=== PATIENT | male | born 1945 | race Caucasian/White ===

== ENCOUNTER 2016-08-27 10:41 | Emergency (ER) | payer OTHER ==
[~2016-08-27] VITALS: Ht 172.7 cm; Wt 104.3 kg
[~2016-08-27 10:41] MED LIST: FLEXERIL10 MG PO; MEDROL DOSEPAK1 PAC PO; NAPROXEN500 M1 PO
[2016-08-27] MEDS ORDERED: ATORVASTATIN CA10 M1 PO (11:08)
[2016-08-27] MEDS ORDERED: AMLODIPINE BESYL5 M1 PO (11:09)
[2016-08-27] MEDS ORDERED: BICALUTAMIDE50 M1 PO (11:09)
[2016-08-27] MEDS ORDERED: LISINOPRIL20 M1 PO (11:09)
--- NOTE | 2016-08-27 11:16 | ED UPPER/LOWER EXTREMITY COMPL ---
History of Present Illness General Chief Complaint: Lower Extremity Problems Stated Complaint: LT LEG PAIN Source: patient, old records Exam Limitations: expressive aphasia Vital Signs & Intake/Output Vital Signs & Intake/Output Vital Signs Date Time Temp Pulse Resp B/P Pulse O2 O2 Flow FiO2 Ox Delivery Rate 08/27 1701 72 20 122/78 98 Room Air 08/27 1528 75 20 129/80 95 Room Air 08/27 1351 98.3 72 20 121/70 94 Room Air Room Air 08/27 1101 97.6 86 18 107/72 96 Room Air Allergies Coded Allergies: NO KNOWN ALLERGIES (01/30/13) Reconcile Medications Amlodipine Besylate 5 MG TABLET 1 TAB PO DAILY HEART (Reported) Atorvastatin Calcium 10 MG TABLET 1 TAB PO DAILY CHOLESTEROL (Reported) Bicalutamide 50 MG TABLET 1 TAB PO DAILY PROSTATE (Reported) Lisinopril 20 MG TABLET 1 TAB PO DAILY HEART (Reported) Triage Note: PT CAME TO TRIAGE WITH COMPLAINTS OF 2 WEEKS OF PAIN IN BILATERAL LEGS, WHEN THIS NURSE SPEAKING WITH PT , PT NOTED TO BE HAVING DIFFICULTY FORMING WORDS, SPEECH IS CLEAR BUT SOME WORDS PT NOTED TO STRUGGLE TO FORM. WHEN QUESTIONED ABOUT IF HE NOTICED THIS , "STATES THAT ITS BEEN GOING ON FOR ABOUT 2.5 WEEKS. Triage Nurses Notes Reviewed? yes HPI: Patient presents for evaluation of bilateral leg problem. The patient apparently has a considerable expressive aphasia and history is extremely limited. There are times where he simply cannot answer a question because of word searching. Apparently he has noted an indentation of the left huizar that began about 3-4 weeks ago. He seems to indicate that there is leg discomfort but cannot characterize it. This began about 2 weeks ago and he feels that only during ambulation. He states he sees a physician at the hospital for leg problems but cannot say who the physician it is. He denies swelling rashes or redness but states he is having trouble ambulating for an unclear reason (he is unable to state if it is a weakness or discoordination). He does admit to having trouble finding words over the past 2 weeks. He has not sought care for these particular issues until this time. Past medical history of cancer but the patient cannot state what kind. Past History Travel History Traveled to [place] past 21 day No Medical History Any Pertinent Medical History? see below for history Neurological: NONE EENT: NONE Cardiovascular: NONE Respiratory: NONE Gastrointestinal: NONE Hepatic: NONE Renal: NONE Musculoskeletal: gout Psychiatric: NONE Endocrine: NONE Blood Disorders: NONE Cancer(s): prostate cancer Surgical History Surgical History: unobtainable Psychosocial History What is your primary language Nepali Tobacco Use: Never used ETOH Use: denies use Illicit Drug Use: denies illicit drug use Family History Hx Contributory? No Review of Systems Review of Systems Constitutional: Reports: no symptoms. EENTM: Reports: no symptoms. Respiratory: Reports: no symptoms. Cardiovascular: Reports: no symptoms. Gastrointestinal/Abdominal: Reports: no symptoms. Genitourinary: Reports: no symptoms. Musculoskeletal: Reports: see HPI. Skin: Reports: no symptoms. Neurological/Psychological: Reports: no symptoms. Hematologic/Endocrine: Reports: no symptoms. Immunological: Reports: no symptoms. All Other Systems: Reviewed and Negative Physical Exam Physical Exam General Appearance: see below Comments: Gen.: Well-nourished, well-developed, no acute respiratory distress. Head: Normocephalic, atraumatic. Eyes: Normal inspection bilaterally, PERRLA, EOMI, no apparent visual field deficits Ears: Normal inspection bilaterally Nose: Normal inspection, nasal cannula in place Throat/mouth : Moist mucosa Neck: Supple, full range of motion, no goiter, no chronic bruits, equal and normal carotid pulses Heart: Regular rate and rhythm Lungs: Quiet respirations Back: Normal range of motion Extremities: Right lower extremity examination normal, left lower extremity examination with mild pretibial pitting edema. Neurologic: Cranial nerves 2 through 12 intact, speech is clear, no dysmetria of his upper or lower extremities, moderate expressive aphasia. Frequent word searching and inappropriate word substitutions. Skin: warm and dry Psychiatric: Calm, cooperative, no apparent delusions or hallucinations Progress Differential Diagnosis: CVA, discoordination, left lower extremity DVT Plan of Care: Orders Procedure Date/time Status PARTIAL THROMBOPLASTIN TIME 08/27 1141 Complete PROTHROMBIN TIME 08/27 1141 Complete COMPREHENSIVE METABOLIC PANEL 08/27 1141 Complete CBC WITHOUT DIFFERENTIAL 08/27 1141 Complete EKG 08/27 1141 Active Laboratory Tests 08/27/16 1145: Anion Gap 15, Estimated GFR 55 L, BUN/Creatinine Ratio 31.5 H, Glucose 119 H, Calcium 9.9, Total Bilirubin 1.1, AST 23, ALT 28, Alkaline Phosphatase 153 H, Total Protein 7.6, Albumin 4.7, Globulin 2.9, Albumin/Globulin Ratio 1.6, PT 12.5, INR 1.19 H, APTT 27, CBC w Diff NO MAN DIFF REQ, RBC 5.23, MCV 86.3, MCH 29.0, RDW 15.0 H, MPV 7.4, Gran % 59.2, Lymphocytes % 29.4, Monocytes % 10.1 H , Eosinophils % 0.9, Basophils % 0.4, Absolute Granulocytes 5.4, Absolute Lymphocytes 2.7, Absolute Monocytes 0.9 H, Absolute Eosinophils 0.1, Absolute Basophils 0, PUBS MCHC 33.5 Diagnostic Imaging: Discussed w/RAD: MRI, Ultrasound. Radiology Impression: PATIENT: TRISHA COOPER PRESENT AGE: 71 PATIENT ACCOUNT NO: [id number] : 47 LOCATION: [facility] ORDERING PHYSICIAN: FABRICIO ZARAGOZA MD SERVICE DATE: 08/27/16-1141 EXAM TYPE: US - US-UNILATERAL VENOUS DOPPLER EXAMINATION: US TRIPLEX LOWER EXTREMITY, LEFT CLINICAL INFORMATION: Left leg swelling. COMPARISON: None. TECHNIQUE: Color-flow triplex imaging with spectral analysis and compression Doppler were performed on the left lower extremity. FINDINGS: The left common femoral vein is compressible and exhibits a normal phasic waveform; this suggests that the iliac veins are widely patent above. Within the proximal thigh, the visualized profunda femoris vein is patent and the examined greater saphenous vein and saphenofemoral junction are normal. Superficial femoral vein is patent in the proximal, mid and distal thigh. Popliteal vein appears normal to the level of the trifurcation, and the visualized calf veins are patent. No evidence of Mcleod's cyst. IMPRESSION: No evidence of deep vein thrombosis in the left lower extremity. DICTATED BY: PAOLO RYDER MD DATE/TIME DICTATED:08/27/161224 MASTER STEAM YACHT:MARIBELL DATE/TIME TRANSCRIBED:08/27/161224 CONFIDENTIAL, DO NOT COPY WITHOUT APPROPRIATE AUTHORIZATION. <Electronically signed in Other Vendor System> SIGNED BY: PAOLO RYDER MD 08/27/16 1230, PATIENT: TRISHA COOPER PRESENT AGE: 71 PATIENT ACCOUNT NO: [id number] : 47 LOCATION: ER ORDERING PHYSICIAN: FABRICIO ZARAGOZA MD SERVICE DATE: 08/27/16 EXAM TYPE: MRI - MRI-HEAD W & W/O RMOAN; MRI-LUMBAR SPINE W & W/O ROMAN EXAMINATION: MRI BRAIN WITH AND WITHOUT IV CONTRAST MRI LUMBAR SPINE WITH AND WITHOUT IV CONTRAST CLINICAL INFORMATION: History of prostate cancer with gait abnormality. COMPARISON: Lumbar spine MRI 11/04/2015. TECHNIQUE : Multiplanar multisequence MR imaging of the brain and lumbar spine are obtained before and following the administration of 20 mL of OptiMARK intravenous contrast without complication. FINDINGS: BRAIN: There is a large dural based enhancing mass within the left parasylvian region measuring up to 6 cm CC by 6 cm AP by 4 cm TV that encases multiple left sylvian MCA branches and that likely infiltrates the left parasylvian brain parenchyma with significant edema within the left parietotemporal white matter and to lesser extent the left frontal white matter. There is linear dural enhancement at and above the level of the mass that is likely reactive or vascular. Background T2 signal changes throughout the supratentorial white matter most likely reflect chronic microangiopathy. There is no hydrocephalus. No extra-axial surface collection. The central arterial flow voids are maintained. There are no acute infarcts on diffusion-weighted imaging. There is susceptibility artifact within the mass that may reflect blood products and/or mineralization. Cerebellar tonsillar position is normal. There is extensive marrow replacement throughout the bony calvarium and partially imaged cervical spine in keeping with osseous metastatic disease. No significant soft tissue findings. LUMBAR SPINE: Progressive extensive heterogeneously enhancing marrow placement throughout the anterior and posterior elements of the lumbar spine and imaged thoracic spine, sacrum, and bony pelvis in keeping with known osseous metastatic disease in these areas. Vertebral body heights are maintained. Moderate disc volume loss at all lumbar levels. Vertebral body heights are maintained with no acute fractures identified. Ventral epidural venous enhancement throughout the lumbar spine most likely reflects engorged epidural venous plexus with no definite enhancing soft tissue tumor identified. There is linear enhancement of the left L5 nerve root throughout its course, likely secondary to mass effect. No nodular enhancement along the cauda equina nerve roots. The conus terminates at the L1 level. At L1- L2 there is a slight diffuse annular disc bulge with a superimposed left lateral disc osteophyte protrusion and there is mild bilateral facet arthropathy with no central canal stenosis and no foraminal stenosis. Findings unchanged. At L2-L3 there is a diffuse annular disc bulge and mild bilateral facet arthropathy with no significant central canal stenosis and mild foraminal narrowing bilaterally without exiting nerve root compression. Findings unchanged. At L3-L4 there is a diffuse annular disc bulge that is eccentric to the right side and there is mild bilateral hypertrophic facet arthropathy. Mild central canal stenosis. Mild left and moderate right-sided foraminal stenosis with mass effect on the exiting right L3 nerve root. Findings unchanged. At L4-L5 there is a central disc protrusion with a new superiorly migrating extruded component that results in mass effect on the traversing left greater than right L5 nerve roots within the subarticular zones. There is mild to moderate bilateral facet arthropathy. Mild central canal stenosis. A left lateral disc protrusion results in stable mass effect on the extraforaminal left L4 nerve root. Moderate to severe left and moderate right foraminal stenosis unchanged. At L5-S1 there is a new inferiorly migrating posterior left paracentral disc extrusion that results in compression of the traversing left S1 nerve root within the left subarticular zone and there is a posterior right paracentral disc protrusion that results in compression of the traversing right S1 nerve root within the right subarticular zone. There is mild to moderate bilateral hypertrophic facet arthropathy. The central canal remains patent. Moderate to severe left foraminal stenosis has progressed with mass effect on the exiting left L5 nerve root. IMPRESSION: 1. There is a 6 cm dural based favored intra-/extra-axial mass within the left parasylvian region that encases multiple left sylvian MCA branches and that likely infiltrates the adjacent left parasylvian brain parenchyma including Wernicke's and Broca's area with significant edema within the adjacent left cerebral white matter. Mass effect includes partial effacement of the left lateral ventricle and up to 1.1 cm rightward midline shift. Susceptibility artifact within the mass that may reflect blood products and/or mineralization. In light of the clinical history, a dural based metastatic focus is favored though a meningioma with brain parenchymal invasion could have a similar appearance. 2. There is extensive marrow replacement throughout the bony calvarium and partially imaged cervical spine in keeping with osseous metastatic disease. 3. Significantly progressive extensive marrow placement throughout the anterior and posterior elements of the lumbar spine and imaged thoracic spine, sacrum, and bony pelvis in keeping with progressive osseous metastatic disease in these areas. Accounting for epidural venous engorgement, no definite enhancing epidural tumor is appreciated. 4. At L5-S1 there is a new inferiorly migrating posterior left paracentral disc extrusion and there is a new posterior right paracentral disc protrusion which results in compression of the traversing S1 nerve roots within the subarticular zones bilaterally. Progressive severe left foraminal stenosis at L5-S1 with mass effect on the exiting left L5 nerve root. 5. At L4-L5 there is a central disc protrusion with a new superiorly migrating extruded component that results in similar mass effect on the traversing L5 nerve roots within the subarticular zones bilaterally. A left lateral disc protrusion results in stable mass effect on the extraforaminal left L4 nerve root. 6. There is linear enhancement along the left L5 nerve root within the thecal sac, presumably secondary to degenerative compression with no nodular enhancement to suggest intrathecal metastatic disease. Findings discussed with Dr. Fabricio Zaragoza at 3:14 PM on 08/27. DICTATED BY: FABRICOI CASTELLANOS MD DATE/TIME DICTATED:08/27/161499 MASTER STEAM YACHT:MARIBELL DATE/TIME TRANSCRIBED:08/27/161499 CONFIDENTIAL, DO NOT COPY WITHOUT APPROPRIATE AUTHORIZATION. <Electronically signed in Other Vendor System> SIGNED BY: FABRICIO CASTELLANOS MD 08/27/16 1541 Comments: 08/27/2016 3:32:04 PM I have updated Trisha on his preliminary MRI test results ( brain mass seen with associated edema). I have paged neurosurgery and the hospitalist. 15:40 d/w dr king. pt will need surgery to remove the brain mass. suggests admit to medicine with heme onc and neuro. patient's case discussed with Dr. bui (neurosurgery). Patient accepted in ED to ED transfer. Departure Departure Disposition: [facility] (ACUTE) Condition: Stable Clinical Impression Primary Impression: Renal insufficiency Secondary Impressions: Aphasia with neuro-oncology diagnosis, Brain metastasis Referrals: NICHELLE CERON MD (PCP/Family) Departure Forms: Customer Survey General Discharge Information Critical Care Note Critical Care Note Critical Care Time: 30-74 min Primary Impression: Renal insufficiency Secondary Impressions: Aphasia with neuro-oncology diagnosis, Brain metastasis Referrals: NICHELLE CERON MD (PCP/Family) Departure Forms: Customer Survey General Discharge Information Critical Care Note Critical Care Note Critical Care Time: 30-74 min
[2016-08-27 12:00] LABS: ABSOLUTE BASOPHIL COUNT 0 /CUMM (0.0-0.2); ABSOLUTE EOSINOPHIL COUNT 0.1 /CUMM (0.0-0.7); ABSOLUTE GRANULOCYTE CT 5.4 /CUMM (1.4-6.5); ABSOLUTE LYMPH COUNT 2.7 /CUMM (1.2-3.4); ABSOLUTE MONOCYTE COUNT 0.9 /CUMM (0.10-0.60); BASOPHIL % 0.4 % (0.0-2.0); EOSINOPHIL % 0.9 % (0-5); GRANULOCYTE % 59.2 % (42.2-75.2); HEMATOCRIT 45.2 % (42-52); MEAN CORPUSCULAR HGB CONC 33.5 G/DL (33.0-37.0); MEAN CORPUSCULAR VOLUME 86.3 FL (80.0-94.0); MEAN PLATELET VOLUME 7.4 FL (7.4-10.4); PLATELET COUNT 284 /CUMM (130-400); RED BLOOD CELL CT 5.23 /CUMM (4.70-6.10); WHITE BLOOD CELL COUNT 9.1 /CUMM (4.8-10.8)
[2016-08-27 12:10] LABS: PT 12.5 SEC (9.4-12.5); PTT 27 SEC (25-37)
--- NOTE | 2016-08-27 12:30 | ULTRASOUND REPORT ---
EXAMINATION: US TRIPLEX LOWER EXTREMITY, LEFT CLINICAL INFORMATION: Left leg swelling. COMPARISON: None. TECHNIQUE: Color-flow triplex imaging with spectral analysis and compression Doppler were performed on the left lower extremity. FINDINGS: The left common femoral vein is compressible and exhibits a normal phasic waveform; this suggests that the iliac veins are widely patent above. Within the proximal thigh, the visualized profunda femoris vein is patent and the examined greater saphenous vein and saphenofemoral junction are normal. Superficial femoral vein is patent in the proximal, mid and distal thigh. Popliteal vein appears normal to the level of the trifurcation, and the visualized calf veins are patent. No evidence of Mcleod's cyst. IMPRESSION: No evidence of deep vein thrombosis in the left lower extremity.
--- NOTE | 2016-08-27 15:41 | MRI REPORT ---
EXAMINATION: MRI BRAIN WITH AND WITHOUT IV CONTRAST MRI LUMBAR SPINE WITH AND WITHOUT IV CONTRAST CLINICAL INFORMATION: History of prostate cancer with gait abnormality. COMPARISON: Lumbar spine MRI 11/04/2015. TECHNIQUE: Multiplanar multisequence MR imaging of the brain and lumbar spine are obtained before and following the administration of 20 mL of OptiMARK intravenous contrast without complication. FINDINGS: BRAIN: There is a large dural based enhancing mass within the left parasylvian region measuring up to 6 cm CC by 6 cm AP by 4 cm TV that encases multiple left sylvian MCA branches and that likely infiltrates the left parasylvian brain parenchyma with significant edema within the left parietotemporal white matter and to lesser extent the left frontal white matter. There is linear dural enhancement at and above the level of the mass that is likely reactive or vascular. Background T2 signal changes throughout the supratentorial white matter most likely reflect chronic microangiopathy. There is no hydrocephalus. No extra-axial surface collection. The central arterial flow voids are maintained. There are no acute infarcts on diffusion-weighted imaging. There is susceptibility artifact within the mass that may reflect blood products and/or mineralization. Cerebellar tonsillar position is normal. There is extensive marrow replacement throughout the bony calvarium and partially imaged cervical spine in keeping with osseous metastatic disease. No significant soft tissue findings. LUMBAR SPINE: Progressive extensive heterogeneously enhancing marrow placement throughout the anterior and posterior elements of the lumbar spine and imaged thoracic spine, sacrum, and bony pelvis in keeping with known osseous metastatic disease in these areas. Vertebral body heights are maintained. Moderate disc volume loss at all lumbar levels. Vertebral body heights are maintained with no acute fractures identified. Ventral epidural venous enhancement throughout the lumbar spine most likely reflects engorged epidural venous plexus with no definite enhancing soft tissue tumor identified. There is linear enhancement of the left L5 nerve root throughout its course, likely secondary to mass effect. No nodular enhancement along the cauda equina nerve roots. The conus terminates at the L1 level. At L1-L2 there is a slight diffuse annular disc bulge with a superimposed left lateral disc osteophyte protrusion and there is mild bilateral facet arthropathy with no central canal stenosis and no foraminal stenosis. Findings unchanged. At L2-L3 there is a diffuse annular disc bulge and mild bilateral facet arthropathy with no significant central canal stenosis and mild foraminal narrowing bilaterally without exiting nerve root compression. Findings unchanged. At L3-L4 there is a diffuse annular disc bulge that is eccentric to the right side and there is mild bilateral hypertrophic facet arthropathy. Mild central canal stenosis. Mild left and moderate right-sided foraminal stenosis with mass effect on the exiting right L3 nerve root. Findings unchanged. At L4-L5 there is a central disc protrusion with a new superiorly migrating extruded component that results in mass effect on the traversing left greater than right L5 nerve roots within the subarticular zones. There is mild to moderate bilateral facet arthropathy. Mild central canal stenosis. A left lateral disc protrusion results in stable mass effect on the extraforaminal left L4 nerve root. Moderate to severe left and moderate right foraminal stenosis unchanged. At L5-S1 there is a new inferiorly migrating posterior left paracentral disc extrusion that results in compression of the traversing left S1 nerve root within the left subarticular zone and there is a posterior right paracentral disc protrusion that results in compression of the traversing right S1 nerve root within the right subarticular zone. There is mild to moderate bilateral hypertrophic facet arthropathy. The central canal remains patent. Moderate to severe left foraminal stenosis has progressed with mass effect on the exiting left L5 nerve root. IMPRESSION: 1. There is a 6 cm dural based favored intra-/extra-axial mass within the left parasylvian region that encases multiple left sylvian MCA branches and that likely infiltrates the adjacent left parasylvian brain parenchyma including Wernicke's and Broca's area with significant edema within the adjacent left cerebral white matter. Mass effect includes partial effacement of the left lateral ventricle and up to 1.1 cm rightward midline shift. Susceptibility artifact within the mass that may reflect blood products and/or mineralization. In light of the clinical history, a dural based metastatic focus is favored though a meningioma with brain parenchymal invasion could have a similar appearance. 2. There is extensive marrow replacement throughout the bony calvarium and partially imaged cervical spine in keeping with osseous metastatic disease. 3. Significantly progressive extensive marrow placement throughout the anterior and posterior elements of the lumbar spine and imaged thoracic spine, sacrum, and bony pelvis in keeping with progressive osseous metastatic disease in these areas. Accounting for epidural venous engorgement, no definite enhancing epidural tumor is appreciated. 4. At L5-S1 there is a new inferiorly migrating posterior left paracentral disc extrusion and there is a new posterior right paracentral disc protrusion which results in compression of the traversing S1 nerve roots within the subarticular zones bilaterally. Progressive severe left foraminal stenosis at L5-S1 with mass effect on the exiting left L5 nerve root. 5. At L4-L5 there is a central disc protrusion with a new superiorly migrating extruded component that results in similar mass effect on the traversing L5 nerve roots within the subarticular zones bilaterally. A left lateral disc protrusion results in stable mass effect on the extraforaminal left L4 nerve root. 6. There is linear enhancement along the left L5 nerve root within the thecal sac, presumably secondary to degenerative compression with no nodular enhancement to suggest intrathecal metastatic disease. Findings discussed with Dr. Fabricio Zaragoza at 3:14 PM on 08/27/2016.
[2016-08-27 17:01] VITALS: BP 122/78
== END 2016-08-27 16:00 | disposition short-term general hospital (02) ==
LOC: ERH 10:41
PROVIDERS: Emergency Medicine
DX: N28.9 Disorder of kidney and ureter, unspecified (principal); R47.01 Aphasia; C79.31 Secondary malignant neoplasm of brain
CPT/HCPCS: 70552; 72149; 70553; 72158; 93005; 93010; 96365; 96375; A9579; J1165